=== PATIENT | female | born 1950 | race Caucasian/White ===

== ENCOUNTER → 2018-05-10 | Outpatient (CLI) | payer OTHER ==
[~2018-05-10] MED LIST: CLARITIN10 MG PO; COUMADIN 2 MG TA2 M1 PO; COUMADIN 5 MG TA5 M1 PO; COZAAR; COZAAR100 MG PO; ENDOCET 7.5-321 EACH PO; ESTRACE1 MG PO; ESTRADIOL0.5 MG PO; FLONASE 0.05%50 MCG NS; FUROSEMIDE 20 M20 M1 PO; HYDROCODON-ACE1 EA10 PO; HYDROCODON-ACE1 EAC5 PO; HYDROCODON-ACE1 EAC7 PO; HYDROCODON-ACE1 EAC8 PO; HYDROCODONE-AP1 EA11 PO; HYDROCODONE-AP1 EA12 PO; HYDROCODONE-AP1 EAC6 PO; K-DUR10 ME1 PO; LEVOXYL25 MCG PO; MOBIC15 MG PO; MS CONTIN15 MG PO; MS CONTIN30 MG PO; NAPROSYN500 MG PO; NEURONTIN 300300 M1 PO; NORTRIPTYLINE H10 M2 PO; NORTRIPTYLINE H25 M3 PO; NORTRIPTYLINE H75 M1 PO; NORVASC 5 MG TAB5 MG PO; OXYCODONE HCL10 MG PO; OXYCONTIN10 M1 PO; PERCOCET 10-321 EACH PO; PERCOCET 7.5-31 EACH PO; PRILOSEC; PRILOSEC 10MG C10 M1 PO; PROAIR HFA8.5 GM IH; PROZAC 10 MG CA10 M1 PO; PROZAC 10 MG CA10 MG PO; SIMVASTATIN20 MG PO; ZANAFLEX4 M1 PO
== END ==
LOC: RAD 02:57
DX: Z12.31 Encounter for screening mammogram for malignant neoplasm of breast (principal)

== ENCOUNTER → 2019-03-07 | Outpatient (CLI) | payer OTHER ==
[~2019-03-07] VITALS: Ht 160 cm; Wt 76.7 kg
[~2019-03-07] MED LIST changes: +TRAZODONE HCL50 MG PO
--- NOTE | ~2019-03-07 | HPC ---
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 The patient returns to pain clinic today for renewal of medication. She is on an opioid agreement and receives morphine extended release 15 mg 3 times a day for a total of 45 MME. She has been tapered somewhat from her highest dose, which was 90 MME. She is getting along okay, but states she did better when she was on the higher dose. She is willing to stay on the lower dose currently and hopefully she will accommodate to that. We are concerned about patients on higher doses for obvious reasons with the opioid crisis. We reviewed the CDC guidelines and her responsibilities for safeguarding the medications. She reports with the medication she is much better. Is able to function at a higher level throughout the day. She denies any significant side effects, constipation is mild and is managed with Senokot S. We have checked her prescription drug monitoring program information and there are no unexpected entries. We checked her urine for medication. It was appropriate for prescribed medications on 08/16/2017. We will consider additional testing at my discretion within the next 6-12 months. PHYSICAL EXAMINATION: Pleasant, alert and oriented, without signs of overmedication, depression or anxiety. Blood pressure 132/87, heart rate 80, 5 feet 3 inches, 169 pounds, BMI of 29.9. Pain intensity 5/10. She has mild tenderness over the bridge of her nose. IMPRESSION: 1. Atypical facial pain. 2. Management with high-risk medications under terms of written opioid agreement. PLAN: I will continue her morphine at current doses. She has some issues with insomnia, which she discussed at the end of the visit today. I have ordered [facility] [address] [address] PAIN MANAGEMENT CONSULTATION Name: DEE PARADA Room #: REG SANJAY Soler.#: [id number] Admission: 03/07/19 ������������������ Attend Phys: Diaz Rodriguez MD Discharge: ������������������ Date of : 52 Report #: [id number] trazodone 50 mg at bedtime as a trial. Plan to see her back in the pain clinic in 3 months. The drug testing will be performed at my discretion. ��������������������������������������������� ���������������������������������������� By: ��������������������������������������������� 1339 [id number] Diaz Rodriguez MD /nt
[2019-03-07 10:19] VITALS: BP 132/87
== END ==
LOC: PAIN 06:55
DX: G50.1 Atypical facial pain (principal); Z79.891 Long term (current) use of opiate analgesic; Z79.899 Other long term (current) drug therapy

== ENCOUNTER → 2019-06-13 | Outpatient (CLI) | payer OTHER ==
[~2019-06-13] VITALS: Ht 160 cm; Wt 73.0 kg
[~2019-06-13] MED LIST changes: +XANAX 0.25 MG0.25 MG PO
[2019-06-13 10:26] VITALS: BP 142/92
--- NOTE | 2019-06-13 10:36 | NUR ---
Pain Clinic Assessment: 1. History of Osteoarthritis: Not Applicable History of Rheumatoid Arthritis: Not Applicable 2. Height: 5 ft. 3 in. 160.0 cm. Weight: 161.0 lb. oz. 73.029 kg. Patient's BMI: 28.5 3. Vital Signs: BP: 142/92 Pulse: 73 Resp: 16 Temp: 02 Sat: 100 ECG Mon: 4. Pain Intensity: 3 5. Fall Risk: Dizziness: N Needs help standing or walking: N Fallen in the last 3 months: N Fall risk comments: 6. Patient on Blood Thinner: None 7. History of Hypertension: Y 8. Opioid Therapy greater than 6 weeks: Y Opiate Contract Signed: 03/07/19 9. Risk Assessment Tool Provided: HIGH RISK 8 10. Functional Assessment Tool: 11. Recreational Drug Use: Never Drug Type: Tobacco Use: Never Smoker Tobacco Type: Amount or Packs/day: How Many Years: Alcohol Use: No Frequency: Quant:
--- NOTE | 2019-06-14 07:54 | HPC ---
[facility] [address] [place] [address] PAIN MANAGEMENT CONSULTATION Name: DEE PARADA Room #: REG [facility] Mamta#: [id number] Admission: 06/13/19 ������������������ Attend Phys: Luz Hargrove Discharge: ������������������ Date of : 52 Report #: [id number] THIS REPORT FOR: //name// CC: Luz Diazalpesh Johnderek DATE OF SERVICE: 06/13/2019 CHIEF COMPLAINT: Chronic atypical facial pain. HISTORY OF PRESENT ILLNESS: This is a very pleasant 69-year-old female who returns to the pain clinic today for a refill of her medications that she uses to help treat her pain on the bridge of her nose. It is a burning, pressure, achy feeling. She averages daily pain score of 3/10. The patient finds the medications very beneficial in controlling her pain. She would like a refill of those medications. She denies any problems with constipation. She tells me that Dr. Rodriguez gave her a prescription for Xanax that she felt also beneficial in helping her sleep. She was wondering if she could have a refill of that medication today. CURRENT ALLERGIES: LISINOPRIL. CURRENT MEDICATIONS: Morphine 15 mg 3 times a day, gabapentin 300 mg 3 times a day, Prilosec, losartan, Prozac, Norvasc, Claritin, potassium, Levoxyl. PQRS: 1. The patient denies any history of osteoarthritis or rheumatoid arthritis. 2. Height is 5 feet 3 inches, weight is 161. BMI is 28. 3. VITAL SIGNS: Blood pressure 142/92, pulse is 73, respirations 16, oxygen sat is 100. 4. Pain score is 3/10. 5. Fall risk. Denies dizziness. Does not need help with walking or standing. She has not fallen in the last 3 months. 6. The patient is not on any blood thinners, does take medicine for hypertension. Opioid therapy is greater than 6 weeks; therefore, an opioid signed contract is on the chart. 7. Risk assessment tool is high. Functional assessment is 25/70. 8. Recreational drug use, she denies. She is not a smoker and does not drink alcohol. According to the prescription monitoring system, the patient is filling appropriately for her medications and is here on time for her medications. There is a recent drug screen on the chart as well. We will recheck this at her next appointment. PHYSICAL EXAMINATION: [address] [address] PAIN MANAGEMENT CONSULTATION Name: DEE PARADA Room #: REG SANJAY Oleary#: [id number] Admission: 06/13/19 ������������������ Attend Phys: Luz Hargrove Discharge: ������������������ Date of : 52 Report #: [id number] GENERAL: This is an alert and oriented, very pleasant 69-year-old female who appears her stated age, placing her current pain score at 3/10. HEENT: Normocephalic, atraumatic. Extraocular eye muscles are intact. Does complain of burning pain in the bridge of her nose that does radiate occasionally under her eyes. IMPRESSION: 1. Atypical facial pain. 2. Management of high risk medications under terms of written opioid agreement. We reviewed the fact that opiate medications are being used to provide analgesia adequate to support activities of daily living, not attempting to achieve a specific pain score on the 0-10 Visual Analog Scale. The current opiate medications are providing sufficient analgesia to allow the patient to participate in activities of daily living. The patient is not exhibiting any aberrant behavior suggestive of drug diversion. The patient is not having any adverse reactions to medications. The patient is not suffering from daytime somnolence or mental acuity changes. The patient is managing opiate-induced constipation with appropriate ckmd-sca-hjibuwx agents and dietary considerations. The patient was counseled on concern for caution with operating a motor vehicle while using opiate medications. A physical exam was performed and the patient's functional status was evaluated. All patients with back pain were advised against the bed rest greater than 4 days and were advised to return to normal activities. Pain score assessment was noted and the treatment plan was reviewed with the patient. All current medications, both prescribed and OTC were reviewed and reconciled on the electronic medical record. Tobacco screening was accomplished and smoking cessation was advised when indicated. BMI was noted and diet/exercise modification was recommended for all patients following outside normal parameters. I reviewed with the patient today their responsibilities to safeguard prescription medications, reviewed their responsibility to utilize medications only as prescribed by the physician. They are to seek and receive pain medications only from 1 physician group ( [facility]). They are to use 1 pharmacy and keep the clinic informed if they change pharmacies. Their responsibilities include making followup visits in a timely fashion and to avoid abrupt discontinuation of medication usage. Their responsibilities further include bringing their medications (bottles from the pharmacy with residual pills) to the visit for possible confirmation of pill counts and the patient understands it is their responsibility to submit to random drug screens to ensure both that the medications prescribed are present, and that no other controlled substances are present. All prescriptions provided today were generated electronically. [facility] [address] [place] [address] PAIN MANAGEMENT CONSULTATION Name: DEE PARADA Room #: REG SANJAY Oleary#: [id number] Admission: 06/13/19 ������������������ Attend Phys: Luz Hargrove Discharge: ������������������ Date of : 52 Report #: [id number] PLAN: 1. We discussed treatment options with the patient today. The patient feels that the morphine is very beneficial in controlling her pain and allows her to enjoy doing many activities. Scripts given for her MS Contin 15 mg 3 times a day for today, 4-week and 8-week release. 2. We did discuss fills when the patient does go to [place], which she spends 6 months there every year. She will return to us one more visit prior to leaving for the winter. The patient will get her prescriptions in a 90-day fill and then will return to us in 3 months for another prescription if she is unable to find a doctor in [place] that will write her medications for her. 3. The patient tells us that the Xanax she was given for sleep was very beneficial. We did discuss the benzodiazepine and opioid combination and instructed her not to take these medications at the same time. She verbalizes understanding, finds that Xanax was much more beneficial than trazodone in helping her sleep at night. 4. Dr. Diaz Rodriguez did see the patient as well today in collaborative care. The patient will follow up in 3 months. ��������������������������������������������� <ELECTRONICALLY SIGNED> ���������������������������������������� By: Luz Hargrove ��������������������������������������������� 06/14/19 0754 1201 1215 Luz Hargrove /nt
== END ==
LOC: PAIN 10:06
DX: G50.1 Atypical facial pain (principal); Z79.891 Long term (current) use of opiate analgesic

== ENCOUNTER → 2019-09-12 | Outpatient (CLI) | payer OTHER ==
[~2019-09-12] VITALS: Ht 160 cm; Wt 73.4 kg
[~2019-09-12] MED LIST changes: +PRAVACHOL40 MG PO
[2019-09-12 10:05] VITALS: BP 131/75
--- NOTE | 2019-09-12 10:11 | NUR ---
Pain Clinic Assessment: 1. History of Osteoarthritis: Not Applicable History of Rheumatoid Arthritis: Not Applicable 2. Height: 5 ft. 3 in. 160.0 cm. Weight: 161.8 lb. oz. 73.392 kg. Patient's BMI: 28.7 3. Vital Signs: BP: 131/75 Pulse: 78 Resp: 16 Temp: 02 Sat: 99 ECG Mon: 4. Pain Intensity: 4 5. Fall Risk: Dizziness: N Needs help standing or walking: N Fallen in the last 3 months: N Fall risk comments: 6. Patient on Blood Thinner: None 7. History of Hypertension: Y 8. Opioid Therapy greater than 6 weeks: Y Opiate Contract Signed: 03/07/19 9. Risk Assessment Tool Provided: HIGH RISK 8 10. Functional Assessment Tool: 11. Recreational Drug Use: Never Drug Type: Tobacco Use: Never Smoker Tobacco Type: Amount or Packs/day: How Many Years: Alcohol Use: No Frequency: Quant:
--- NOTE | 2019-09-13 11:29 | HPC ---
[facility] [address] [place] [address] PAIN MANAGEMENT CONSULTATION Name: DEE PARADA Room #: REG [facility] Mamta#: [id number] Admission: 09/12/19 Attend Phys: Luz Hargrove Discharge: Date of : 52 Report #: [id number] THIS REPORT FOR: //name// CC: Luz Hargrove Billy Johnderek DATE OF SERVICE: 09/12/2019 CHIEF COMPLAINT: Chronic atypical facial pain. HISTORY OF PRESENT ILLNESS: This is a very pleasant 69-year-old female, who returns to the pain clinic today for a refill of her medications that she uses to help treat her pain that is located at the bridge of her nose. She said it is a burning pressure, achy feeling that she rates a pain score of 4/10 today. It is worse with cold weather, but the medication and pressure to her nose is beneficial. She also states that the use of Xanax has been very beneficial in allowing her to sleep at night. She is able to sleep at least 4 hours at a time before she has to get up and reposition and then she still is able to sleep longer. The patient reports that she will be going to [place], [place] for the winter, leaving next week and is requesting a slightly early vacation fill of her medications. She denies any problems with overmedication or constipation with this medication. She uses granola bars and finds them very beneficial. ALLERGIES: LISINOPRIL. CURRENT LIST OF MEDICATIONS: Pravastatin 40 mg, alprazolam 0.25 mg, morphine sulfate ER 15 mg t.i.d., gabapentin 300 mg t.i.d., omeprazole 10 mg daily, losartan 100 mg daily, Prozac 10 mg, amlodipine 5 mg, Claritin 10 mg, potassium 10 mEq, and Synthroid 137 mcg. PQRS: 1. She denies any history of osteoarthritis or rheumatoid arthritis. 2. Height is 5 feet 3 inches, weight is 161, and BMI is 28. Vital signs 131/75, pulse is 78, respirations 16, oxygen sat is 99, and pain score is 4/10. Denies dizziness, does not need help walking or standing, and has not fallen in the last 3 months. The patient is not on any blood thinners, but does take medicine for hypertension. Her opioid therapy is greater than 6 weeks. Therefore, an opioid signed contract is on the chart. Her risk assessment tool is high. Functional assessment is 25/70. 3. Recreational drug use, she denies. She is not a smoker and does not drink alcohol. According to the prescription monitoring system, the patient is due to fill her medications next week. We will check a random drug screen on this patient today. [address] [address] PAIN MANAGEMENT CONSULTATION Name: DEE PARADA Room #: REG SANJAY Oleary#: [id number] Admission: 09/12/19 Attend Phys: Luz HELEN Hargrove Discharge: Date of : 52 Report #: [id number] PHYSICAL EXAMINATION: GENERAL: This is an alert and orientated, very pleasant 69-year-old female, who appears her stated age, placing her current pain score at 4/10. HEENT: Normocephalic and atraumatic. The extraocular eye muscles are intact. She has burning pressure on the bridge of her nose that radiates under her bilateral eyes. IMPRESSION: 1. Atypical facial pain. 2. Management of high risk medications under terms of written opioid agreement. We reviewed the fact that opiate medications are being used to provide analgesia adequate to support activities of daily living, not attempting to achieve a specific pain score on the 0-10 Visual Analog Scale. The current opiate medications are providing sufficient analgesia to allow the patient to participate in activities of daily living. The patient is not exhibiting any aberrant behavior suggestive of drug diversion. The patient is not having any adverse reactions to medications. The patient is not suffering from daytime somnolence or mental acuity changes. The patient is managing opiate-induced constipation with appropriate wpli-szl-sgcezjj agents and dietary considerations. The patient was counseled on concern for caution with operating a motor vehicle while using opiate medications. A physical exam was performed and the patient's functional status was evaluated. All patients with back pain were advised against the bed rest greater than 4 days and were advised to return to normal activities. Pain score assessment was noted and the treatment plan was reviewed with the patient. All current medications, both prescribed and OTC were reviewed and reconciled on the electronic medical record. Tobacco screening was accomplished and smoking cessation was advised when indicated. BMI was noted and diet/exercise modification was recommended for all patients following outside normal parameters. I reviewed with the patient today their responsibilities to safeguard prescription medications, reviewed their responsibility to utilize medications only as prescribed by the physician. They are to seek and receive pain medications only from 1 physician group ( [facility]). They are to use 1 pharmacy and keep the clinic informed if they change pharmacies. Their responsibilities include making followup visits in a timely fashion and to avoid abrupt discontinuation of medication usage. Their responsibilities further include bringing their medications (bottles from the pharmacy with residual pills) to the visit for possible confirmation of pill counts and the patient understands it is their responsibility to submit to random drug screens to ensure both that the medications prescribed are present, and that no other controlled substances are present. All prescriptions provided today were generated electronically. [address] [address] PAIN MANAGEMENT CONSULTATION Name: DEE PARADA [id number] Admission: 09/12/19 Attend Phys: Luz Hargrove Discharge: Date of : 52 Report #: [id number] PLAN: 1. We discussed the treatment options with the patient today. The patient finds her Xanax and morphine very beneficial in controlling her nose pain. Scripts given today for her Xanax 0.25 mg, #90, with one additional refill. This is a 3-month mail off prescription since she will be in [place] for this winter. 2. MS Contin 50 mg t.i.d., #270, were given. This is a 3-month supply. This will enable her to go to [place] and return in 3 months to see us and not have to have a prescription filled by another doctor while she is out of state. The patient is instructed to keep this medicine locked up and it is safeguarded. Dr. Diaz Rodriguez was present for part of this discussion and reiterated strongly that she needs to keep this medicine locked up. The patient verbalizes understanding. 3. The patient submitted to a urine drug screen since it had been greater than one year. 4. The patient will return in followup as needed. Dr. Diaz Rodriguez did collaborate care and saw the patient. <ELECTRONICALLY SIGNED> By: Luz Hargrove 09/13/19 1129 1140 0230 Luz Hargrove /elbert
== END ==
LOC: PAIN 06:55
DX: G50.1 Atypical facial pain (principal); Z88.8 Allergy status to other drugs, medicaments and biological substances; Z79.899 Other long term (current) drug therapy; Z79.891 Long term (current) use of opiate analgesic

== ENCOUNTER → 2019-11-13 | Outpatient (CLI) | payer OTHER ==
[~2019-11-13] VITALS: Ht 160 cm; Wt 75.3 kg
[2019-11-13 10:40] VITALS: BP 133/79
--- NOTE | 2019-11-13 10:53 | NUR ---
Pain Clinic Assessment: 1. History of Osteoarthritis: Not Applicable History of Rheumatoid Arthritis: Not Applicable 2. Height: 5 ft. 3 in. 160.0 cm. Weight: 166.0 lb. oz. 75.297 kg. Patient's BMI: 29.4 3. Vital Signs: BP: 133/79 Pulse: 77 Resp: 16 Temp: 02 Sat: 98 ECG Mon: 4. Pain Intensity: 3-4 5. Fall Risk: Dizziness: N Needs help standing or walking: N Fallen in the last 3 months: N Fall risk comments: 6. Patient on Blood Thinner: None 7. History of Hypertension: Y 8. Opioid Therapy greater than 6 weeks: Y Opiate Contract Signed: 03/07/19 9. Risk Assessment Tool Provided: HIGH RISK 8 10. Functional Assessment Tool: 11. Recreational Drug Use: Never Drug Type: Tobacco Use: Never Smoker Tobacco Type: Amount or Packs/day: How Many Years: Alcohol Use: No Frequency: Quant:
--- NOTE | 2019-11-14 07:50 | HPC ---
[facility] [address] [place] [address] PAIN MANAGEMENT CONSULTATION Name: DEE PARADA [id number] Admission: 11/13/19 Attend Phys: Luz Hargrove Discharge: Date of : 52 Report #: [id number] THIS REPORT FOR: //name// CC: Luz Morrissey MD DATE OF SERVICE: 11/13/2019 CHIEF COMPLAINT: Chronic atypical facial pain. HISTORY OF PRESENT ILLNESS: The patient is a 69-year-old female who returns to the pain clinic today requesting refills of her medication. She does have pain that is located on the bridge of her nose, which is a burning pressure, worse with weather changes. She is rating a pain score 4/10 today. She feels that the medication is beneficial. She does spend the gallardo in [place]. She is here for the [place] holiday and is requesting a refill of her medications for 2 months to get her through her winter in [place]. The patient denies any problems with constipation or daytime sleepiness from this medication. She feels like she is active as she would like. She does report that she safeguards them at all times. She knows she is not due to fill these medications for another 3 weeks, but since she is here for the holidays she would like to fill them prior to going back to [place]. ALLERGIES: LISINOPRIL. CURRENT LIST OF MEDICATIONS: MS Contin 15 mg t.i.d., alprazolam 0.25 mg at bedtime p.r.n., pravastatin 40 mg daily, gabapentin 300 mg t.i.d., omeprazole, losartan 100 mg daily, Prozac 10 mg daily, Norvasc 5 mg daily, potassium 10 mEq b.i.d. and Levoxyl 137 mcg daily. PQRS: 1. She denies any history of osteoarthritis or rheumatoid arthritis. 2. Height is 5 feet 3 inches, weight is 166. BMI is 29. 3. Vital signs; 133/79, pulse is 77, respirations 16, oxygen sat is 98. 4. Pain score is 3-4. 5. Denies dizziness, does not need help walking or standing, has not fallen in the last 3 months. 6. The patient is not on any blood thinners, but does take medicine for hypertension. 7. Opioid therapy is greater than 6 weeks; therefore, an opioid signed contract is on the chart. Risk assessment tool is high. Functional assessment is 25/70. 8. Recreational drug use, she denies. She is not a smoker and does not drink alcohol. [address] [address] PAIN MANAGEMENT CONSULTATION Name: DEE PARADA Room #: REG [facility] Oleary#: [id number] Admission: 11/13/19 Attend Phys: Luz Hargrove Discharge: Date of : 52 Report #: [id number] According to the prescription monitoring system, the patient is given 3 months of medications and failed in 09/16/2019. She is due to fill these medications again on 12/09/2018 and is requesting an early refill due to her vacation in [place]. She has a recent drug screen on the chart that is appropriate as well. She reports she safeguards her meds at all times. Her morphine mEq is 45 MME according to the CDC guidelines. PHYSICAL EXAMINATION: GENERAL: This is alert and orientated 69-year-old female who placing her current pain score at 3-4. She is a good historian and she appears her stated age. HEENT: Normocephalic, atraumatic. Extraocular eye muscles are intact. She has pressure and burning at the bridge of her nose that radiates under her bilateral eyes. IMPRESSION: 1. Atypical facial pain. 2. Management of high risk medications under terms of written opioid agreement. We reviewed the fact that opiate medications are being used to provide analgesia adequate to support activities of daily living, not attempting to achieve a specific pain score on the 0-10 Visual Analog Scale. The current opiate medications are providing sufficient analgesia to allow the patient to participate in activities of daily living. The patient is not exhibiting any aberrant behavior suggestive of drug diversion. The patient is not having any adverse reactions to medications. The patient is not suffering from daytime somnolence or mental acuity changes. The patient is managing opiate-induced constipation with appropriate [id number] agents and dietary considerations. The patient was counseled on concern for caution with operating a motor vehicle while using opiate medications. I reviewed with the patient today their responsibilities to safeguard prescription medications, reviewed their responsibility to utilize medications only as prescribed by the physician. They are to seek and receive pain medications only from 1 physician group ( [facility]). They are to use 1 pharmacy and keep the clinic informed if they change pharmacies. Their responsibilities include making followup visits in a timely fashion and to avoid abrupt discontinuation of medication usage. Their responsibilities further include bringing their medications (bottles from the pharmacy with residual pills) to the visit for possible confirmation of pill counts and the patient understands it is their responsibility to submit to random drug screens to ensure both that the medications prescribed are present, and that no other controlled substances are present. All prescriptions provided today were generated electronically. [address] [address] PAIN MANAGEMENT CONSULTATION Name: DEE PARADA Room #: REG [facility]#: [id number] Admission: 11/13/19 Attend Phys: Luz HELEN Delvin Discharge: Date of : 52 Report #: [id number] PLAN: 1. We discussed treatment options with the patient today. The patient has been in [place] for the last 2 months and is here requesting a refill for 2 months of medications. She understands that she is not due to fill those until November. We did discuss this with Dr. Diaz Rodriguez. He is willing to give her a 2-month prescription, noting that she is not able to fill any further medications until after February 03. Based on the amount of medications she has had in the 30-day supply that we have given her for these medication fills. The patient verbalizes understanding. We will make this prescription available to her on 11/21/2019 prior to her leaving back to [place]. 2. I encouraged the patient to try to decrease 2 tablets of morphine a day to see how her pain is dropping the midday dose. The patient has been at this level for quite some time, has not tried to decrease, but thinks that she will be able to do this since her pain has been quite well controlled for a significant amount of time. We will continue at her 3 tablets a day at 45 morphine milliequivalents of morphine, but if she is able to decrease may be a physician in the future in [place] would be willing to write for these medications when she is there for the . 3. No prescription needed for Xanax. 4. The patient is seen today in collaboration with Dr. Diaz Rodriguez. The patient will return in January for an appointment. <ELECTRONICALLY SIGNED> By: Luz Hargrove 11/14/19 0750 [id number] Luz Hargrove /nt
== END ==
LOC: PAIN 09:57
DX: G50.1 Atypical facial pain (principal); Z79.891 Long term (current) use of opiate analgesic

== ENCOUNTER → 2020-03-11 | Outpatient (CLI) | payer OTHER ==
[~2020-03-11] VITALS: Ht 160 cm; Wt 74.2 kg
[~2020-03-11] MED LIST changes: +LEVOXYL137 MCG PO; -LEVOXYL25 MCG PO; +REMERON15 M2 PO
[2020-03-11 09:03] VITALS: BP 156/93
--- NOTE | 2020-03-11 09:20 | NUR ---
Pain Clinic Assessment: 1. History of Osteoarthritis: DENIES History of Rheumatoid Arthritis: DENIES 2. Height: 5 ft. 3 in. 160.0 cm. Weight: 163.6 lb. oz. 74.208 kg. Patient's BMI: 13.9 3. Vital Signs: BP: 156/93 Pulse: 80 Resp: 16 Temp: 02 Sat: 99 ECG Mon: 4. Pain Intensity: 4 5. Fall Risk: Dizziness: N Needs help standing or walking: N Fallen in the last 3 months: N Fall risk comments: 6. Patient on Blood Thinner: None 7. History of Hypertension: Y 8. Opioid Therapy greater than 6 weeks: Y Opiate Contract Signed: 03/07/19 9. Risk Assessment Tool Provided: HIGH RISK 8 10. Functional Assessment Tool: 11. Recreational Drug Use: Never Drug Type: Tobacco Use: Never Smoker Tobacco Type: Amount or Packs/day: How Many Years: Alcohol Use: No Frequency: Quant:
--- NOTE | 2020-03-11 14:37 | HPC ---
[facility] [address] [place] [address] PAIN MANAGEMENT CONSULTATION Name: DEE PARADA Room #: REG [facility] Karlene.#: [id number] Admission: 03/11/20 Attend Phys: Luz Hargrove Discharge: Date of : 52 Report #: [id number] THIS REPORT FOR: cc: Billy Morrissey Steven F. DO Hocker,Luz CERVANTES ~ CC: Diaz Rodriguez MD DATE OF SERVICE: 03/11/2020 CHIEF COMPLAINT: Chronic atypical facial pain. HISTORY OF PRESENT ILLNESS: This is a very pleasant 69-year-old female who returns to the pain clinic today for a refill of her medications. She reports today a pain score of 4/10. Her pain is typically across the bridge of her nose. She reports it is a burning pressure. She feels more relief when she applies pressure to her nose as well as with her medications. Today, she is wearing a mask due to the COVID virus and reports that it is not bothersome to her nose presently. She reports the pain is increased with stress. The patient denies any problems with feelings of overmedication or daytime sleepiness. The patient does report that she is not sleeping well at night and is wondering if she may have a possible increase in her alprazolam. Currently, she takes Xanax 0.25mg at bedtime, but reports that she is having difficulty falling asleep or staying asleep past 2 hours. ALLERGIES: LISINOPRIL. CURRENT LIST OF MEDICATIONS: MS Contin 15 mg t.i.d., alprazolam 0.25 mg at bedtime, pravastatin, albuterol, omeprazole, losartan, Prozac, Norvasc, Claritin, potassium, and Levoxyl. PQRS: 1. She denies any history of osteo or rheumatoid arthritis. 2. Height is 5 feet 3 inches, weight is 163, BMI is 30. 3. Vital signs 156/93, pulse is 80, respirations 16, oxygen sat is 99. 4. Pain score is 4/10. 5. Denies dizziness, does not need help walking or standing, has not fallen in the last 3 months. 6. The patient is not on any blood thinners, but does take medicine for hypertension. 7. Opiate therapy is greater than 6 weeks; therefore, an opioid signed contract is on the chart. Risk assessment tool is low. Functional assessment is 25/70. 8. Recreational drug use, she denies. She is not a smoker [place] [address] PAIN MANAGEMENT CONSULTATION Name: DEE PARADA Room #: REG [facility] Oleary#: [id number] Admission: 03/11/20 Attend Phys: Luz Hargrove Discharge: Date of : 52 Report #: [id number] According to the prescription monitoring system, the patient is due to fill her medicines. Her last refill was in [place] prior to returning in early January that is not listed on the PDMP, but we do have a record of that fill from her [facility]. According to the CDC guidelines, her morphine milligram equivalent is 45 MME per day. PHYSICAL EXAMINATION: GENERAL: This is alert and orientated, very pleasant 69-year-old female who appears her stated age, placing her current pain score at 04/10 today. HEENT: Normocephalic, atraumatic. Extraocular eye muscles are intact. She has pressure and burning pain at the bridge of her nose that radiates under her eyes bilaterally. IMPRESSION: 1. Atypical facial pain. 2. Management of high risk medications under terms of written opioid agreement. 3. Insomnia. We reviewed the fact that opiate medications are being used to provide analgesia adequate to support activities of daily living, not attempting to achieve a specific pain score on the 0-10 Visual Analog Scale. The current opiate medications are providing sufficient analgesia to allow the patient to participate in activities of daily living. The patient is not exhibiting any aberrant behavior suggestive of drug diversion. The patient is not having any adverse reactions to medications. The patient is not suffering from daytime somnolence or mental acuity changes. The patient is managing opiate-induced constipation with appropriate njmf-exf-ghjwdet agents and dietary considerations. The patient was counseled on concern for caution with operating a motor vehicle while using opiate medications. PLAN: 1. We discussed treatment options with the patient today. The patient finds her morphine very beneficial in controlling her pain. We will have Dr. Diaz Rodriguez send this medicine electronically to her pharmacy for 90 tablets for a total of 3 months. 2. The patient is wanting to increase her alprazolam. I explained to her about the opioid, benzodiazepine interaction and we are trying to keep people on the lowest most effective dose of those medications. The CDC prefers that we do not have people on that combination and the patient has been stable on these low dose for quite some time without any difficulty. Instead, I am offering Remeron 15 mg 1 at bedtime for patient to trial to see if this aids in her sleep. We also discussed sleep habits and I offered her a sleep hygiene tip sheet as well. 3. We will send electronically her alprazolam 0.25 mg, #90. This is a 3-month supply with no refills. [facility] [address] [place] [address] PAIN MANAGEMENT CONSULTATION Name: DEE PARADA Room #: [facility] SANJAY Oleary#: [id number] Admission: 03/11/20 Attend Phys: Luz Hargrove Discharge: Date of : 52 Report #: [id number] 4. The patient will call if the Remeron is not beneficial in helping with her sleep. The patient is seen today in collaboration with Dr. Diaz Rodriguez. <ELECTRONICALLY SIGNED> By: Luz Hargrove 03/11/20 1437 [id number] [id number] Luz Hargrove /nt
== END ==
LOC: PAIN 08:26
DX: G50.1 Atypical facial pain (principal); F11.20 Opioid dependence, uncomplicated; G47.00 Insomnia, unspecified; Z88.8 Allergy status to other drugs, medicaments and biological substances; Z79.899 Other long term (current) drug therapy

== ENCOUNTER → 2020-06-11 | Outpatient (CLI) | payer OTHER | LOC: PAIN 08:11 | DX: G50.1 Atypical facial pain (principal); Z79.899 Other long term (current) drug therapy ==

== ENCOUNTER → 2020-09-24 | Outpatient (CLI) | payer OTHER ==
[~2020-09-24] VITALS: Ht 160 cm; Wt 77.3 kg
[2020-09-24 09:05] VITALS: BP 124/87
--- NOTE | 2020-09-24 09:18 | NUR ---
Pain Clinic Assessment: 1. History of Osteoarthritis: DENIES History of Rheumatoid Arthritis: DENIES 2. Height: 5 ft. 3 in. 160.0 cm. Weight: 170.4 lb. oz. 77.293 kg. Patient's BMI: 30.2 3. Vital Signs: BP: 124/87 Pulse: 84 Resp: 16 Temp: 02 Sat: 99 ECG Mon: 4. Pain Intensity: 4 5. Fall Risk: Dizziness: N Needs help standing or walking: N Fallen in the last 3 months: N Fall risk comments: 6. Patient on Blood Thinner: None 7. History of Hypertension: Y 8. Opioid Therapy greater than 6 weeks: Y Opiate Contract Signed: 03/07/19 9. Risk Assessment Tool Provided: HIGH RISK 8 10. Functional Assessment Tool: 11. Recreational Drug Use: Never Drug Type: Tobacco Use: Never Smoker Tobacco Type: Amount or Packs/day: How Many Years: Alcohol Use: No Frequency: Quant:
--- NOTE | 2020-09-24 15:29 | HPC ---
[facility] [address] [address] PAIN MANAGEMENT CONSULTATION Name: DEE PARADA Room #: REG [facility] Karlene.#: [id number] Admission: 09/24/20 Attend Phys: Luz Hargrove Discharge: Date of : 52 Report #: [id number] CC: Luz Morrissey MD DATE OF SERVICE: 09/24/2020 CHIEF COMPLAINT: Chronic atypical facial pain. HISTORY OF PRESENT ILLNESS: This is a very pleasant 70-year-old female who returns to the pain clinic today for refill of her opioid medications. Today, she is reporting that her morphine is very beneficial in helping reduce her chronic pain that is typically on the bridge of her nose, feeling it is a burning sensation between her eyes that does radiate up into her head when it does become intense. She states it is a pressure as well as a burning sensation, rating at a 4/10 today. She does report that weather changes, especially cold does increase her pain, so last week her pain was elevated. She is leaving to go to [place] next week and she is hopeful that while she is there, her pain will decrease again as it had in past years. The patient does report when she is in [place], typically she is able to get by with 2 morphine tablets a day. The patient does report that the Remeron has been very beneficial in helping with her insomnia. She states that she is sleeping very well since starting that medication and would like to continue that medication as well today. The patient states her constipation has been under control as long as she takes MiraLax on a daily basis. ALLERGIES: LISINOPRIL. CURRENT LIST OF MEDICATIONS: Morphine sulfate 15 mg t.i.d., pravastatin, omeprazole, losartan, fluoxetine, amlodipine, loratadine, potassium, levothyroxine and Remeron 15 mg. PQRS: 1. She has history of osteoarthritis in her knees and neck. Denies any rheumatoid arthritis. 2. Height is 5 feet 3 inches, weight is 170, BMI is 30. Vital signs 124/87, pulse is 84, respirations 16, oxygen sat is 99%. 3. Pain score is 4/10. 4. Denies dizziness, does not need help walking or standing, has not fallen in the last 3 months. 5. The patient is not on any blood thinners, but does take medicine for hypertension. Her opioid therapy is greater than 6 weeks; therefore, an opioid signed contract is on the chart. Risk assessment is high. Functional assessment is 23/70. 6. Recreational drug use, she denies. She is not a smoker and does not drink alcohol. According to the prescription monitoring system, her morphine mEq is 45 MME per day, well under the CDC guidelines. Some days, it is less than that if she is able to decrease her morphine, typically she is able to do in the winter months when in [place]. There is a drug screen on the chart that was appropriate for her medications as well. She has been filling locally at [facility], but for the next 3-6 months, she will be filling in [place], [place] at [facility] that she has used in the past. PHYSICAL EXAMINATION: GENERAL: This is alert and orientated 70-year-old female who appears her stated age, placing her current pain score today at 4/10. She is a good historian, who is well-developed, well-nourished. HEENT: Normocephalic, atraumatic. Extraocular eye muscles are intact. She has a burning pressure sensation on the bridge of her nose that radiates under her eyes bilaterally. IMPRESSION: 1. Atypical facial pain. 2. Insomnia. 3. Management of high-risk medications under terms of written opioid agreement. PLAN: 1. We discussed treatment options with the patient today. We will renew her morphine 15 mg 3 times a day for 3 months. These medications will be sent electronically by Dr. Diaz Rodriguez to her [facility]; explained to the patient that in 3 months' time, she will need to either return to [place] for an outpatient visit as she has done in the past. She is afraid of flying during the COVID outbreak. We did discuss a possible telemedicine appointment for her at that time or for her to find a doctor in [place] that is willing to write her medications. The patient does report that typically she is able to decrease her medicine to twice a day when in [place] and she may consider acupuncture as well, which has been beneficial in decreasing her pain at times, though short-lived; she may consider both of those options while in [place] and therefore, it may be greater than 3 months in between visits. 2. At the next visit, we will collect a random drug screen if it is an in-person. The patient is seen today in collaboration with Dr. Diaz Rodriguez. <ELECTRONICALLY SIGNED> By: Luz Hargrove 09/24/20 1529 [id number] Luz Hargrove /elbert
== END ==
LOC: PAIN 06:47
PROVIDERS: ATTEND Clinical Nurse Specialist Adult Health
DX: G50.1 Atypical facial pain (principal); G47.09 Other insomnia; Z79.891 Long term (current) use of opiate analgesic; Z79.899 Other long term (current) drug therapy

== ENCOUNTER → 2020-12-24 | Outpatient (CLI) | payer OTHER ==
[~2020-12-24] MED LIST changes: +MIRTAZAPINE15 M2 PO
== END ==
LOC: TELEPC 07:01
PROVIDERS: ATTEND Clinical Nurse Specialist Adult Health
DX: G50.1 Atypical facial pain (principal); G89.29 Other chronic pain; G47.00 Insomnia, unspecified; F11.20 Opioid dependence, uncomplicated

== ENCOUNTER → 2021-03-22 | Outpatient (CLI) | payer OTHER ==
[~2021-03-22] VITALS: Ht 160 cm; Wt 76.7 kg
[2021-03-22 10:05] VITALS: BP 131/87
--- NOTE | 2021-03-22 10:10 | NUR ---
Pain Clinic Assessment: 1. History of Osteoarthritis: DENIES History of Rheumatoid Arthritis: DENIES 2. Height: 5 ft. 3 in. 160.0 cm. Weight: 169.0 lb. oz. 76.658 kg. Patient's BMI: 29.9 3. Vital Signs: BP: 131/87 Pulse: 73 Resp: 14 Temp: 02 Sat: 96 ECG Mon: 4. Pain Intensity: 4-6 5. Fall Risk: Dizziness: N Needs help standing or walking: N Fallen in the last 3 months: N Fall risk comments: 6. Patient on Blood Thinner: None 7. History of Hypertension: Y 8. Opioid Therapy greater than 6 weeks: Y Opiate Contract Signed: 03/07/19 9. Risk Assessment Tool Provided: HIGH RISK 8 10. Functional Assessment Tool: 11. Recreational Drug Use: Never Drug Type: Tobacco Use: Never Smoker Tobacco Type: Amount or Packs/day: How Many Years: Alcohol Use: No Frequency: Quant:
== END ==
LOC: PAIN 07:09
PROVIDERS: ATTEND Clinical Nurse Specialist Adult Health
DX: G89.29 Other chronic pain (principal); G50.1 Atypical facial pain; G47.00 Insomnia, unspecified; Z88.8 Allergy status to other drugs, medicaments and biological substances; Z79.891 Long term (current) use of opiate analgesic; Z79.899 Other long term (current) drug therapy

== ENCOUNTER → 2021-06-10 | Outpatient (CLI) | payer OTHER | LOC: BC 14:52 | PROVIDERS: ATTEND Neuromusculoskeletal Medicine & OMM | DX: Z12.31 Encounter for screening mammogram for malignant neoplasm of breast (principal) ==

== ENCOUNTER → 2021-06-21 | Outpatient (CLI) | payer OTHER ==
[~2021-06-21] VITALS: Ht 160 cm; Wt 77.1 kg
[~2021-06-21] MED LIST changes: +MIRALAX119 GM PO
[2021-06-21 09:24] VITALS: BP 142/84
--- NOTE | 2021-06-21 09:26 | NUR ---
Pain Clinic Assessment: 1. History of Osteoarthritis: DENIES History of Rheumatoid Arthritis: DENIES 2. Height: 5 ft. 3 in. 160.0 cm. Weight: 170.0 lb. oz. 77.112 kg. Patient's BMI: 30.1 3. Vital Signs: BP: 142/84 Pulse: 86 Resp: 16 Temp: 02 Sat: 94 ECG Mon: 4. Pain Intensity: 4 5. Fall Risk: Dizziness: N Needs help standing or walking: N Fallen in the last 3 months: N Fall risk comments: 6. Patient on Blood Thinner: None 7. History of Hypertension: Y 8. Opioid Therapy greater than 6 weeks: Y Opiate Contract Signed: 03/07/19 9. Risk Assessment Tool Provided: HIGH RISK 8 10. Functional Assessment Tool: 11. Recreational Drug Use: Never Drug Type: Tobacco Use: Never Smoker Tobacco Type: Amount or Packs/day: How Many Years: Alcohol Use: No Frequency: Quant:
== END ==
LOC: PAIN 07:08
PROVIDERS: ATTEND Clinical Nurse Specialist Adult Health
DX: R51.9 Headache, unspecified (principal); G47.00 Insomnia, unspecified; K59.00 Constipation, unspecified; I10 Essential (primary) hypertension; Z79.891 Long term (current) use of opiate analgesic; Z79.899 Other long term (current) drug therapy

== ENCOUNTER → 2021-09-16 | Outpatient (CLI) | payer OTHER ==
[~2021-09-16] VITALS: Ht 160 cm; Wt 75.5 kg
[2021-09-16 13:13] VITALS: BP 128/79
--- NOTE | 2021-09-16 13:35 | NUR ---
Pain Clinic Assessment: 1. History of Osteoarthritis: DENIES History of Rheumatoid Arthritis: DENIES 2. Height: 5 ft. 3 in. 160.0 cm. Weight: 166.4 lb. oz. 75.479 kg. Patient's BMI: 29.5 3. Vital Signs: BP: 128/79 Pulse: 83 Resp: 16 Temp: 02 Sat: 100 ECG Mon: 4. Pain Intensity: 8 5. Fall Risk: Dizziness: N Needs help standing or walking: N Fallen in the last 3 months: N Fall risk comments: 6. Patient on Blood Thinner: None 7. History of Hypertension: Y 8. Opioid Therapy greater than 6 weeks: Y Opiate Contract Signed: 03/07/19 9. Risk Assessment Tool Provided: HIGH RISK 8 10. Functional Assessment Tool: 11. Recreational Drug Use: Never Drug Type: Tobacco Use: Never Smoker Tobacco Type: Amount or Packs/day: How Many Years: Alcohol Use: No Frequency: Quant:
== END ==
LOC: PAIN 11:00
PROVIDERS: ATTEND Clinical Nurse Specialist Adult Health
DX: G89.29 Other chronic pain (principal); G50.1 Atypical facial pain; G47.09 Other insomnia; Z79.899 Other long term (current) drug therapy; Z88.8 Allergy status to other drugs, medicaments and biological substances

== ENCOUNTER → 2021-11-25 | Outpatient (CLI) | payer OTHER ==
[~2021-11-25] VITALS: Ht 160 cm; Wt 78.7 kg
[2021-11-25 10:01] VITALS: BP 128/71
--- NOTE | 2021-11-25 10:15 | NUR ---
Pain Clinic Assessment: 1. History of Osteoarthritis: DENIES History of Rheumatoid Arthritis: DENIES 2. Height: 5 ft. 3 in. 160.0 cm. Weight: 173.4 lb. oz. 78.654 kg. Patient's BMI: 30.7 3. Vital Signs: BP: 128/71 Pulse: 82 Resp: 16 Temp: 02 Sat: 96 ECG Mon: 4. Pain Intensity: 3 5. Fall Risk: Dizziness: N Needs help standing or walking: N Fallen in the last 3 months: N Fall risk comments: 6. Patient on Blood Thinner: None 7. History of Hypertension: Y 8. Opioid Therapy greater than 6 weeks: Y Opiate Contract Signed: 03/07/19 9. Risk Assessment Tool Provided: HIGH RISK 8 10. Functional Assessment Tool: 11. Recreational Drug Use: Never Drug Type: Tobacco Use: Never Smoker Tobacco Type: Amount or Packs/day: How Many Years: Alcohol Use: No Frequency: Quant:
== END ==
LOC: PAIN 06:52
PROVIDERS: ATTEND Clinical Nurse Specialist Adult Health
DX: G50.1 Atypical facial pain (principal); G47.09 Other insomnia; K59.03 Drug induced constipation; Z88.8 Allergy status to other drugs, medicaments and biological substances; Z79.899 Other long term (current) drug therapy